=== PATIENT | male | born 2000 | race Caucasian/White ===

== ENCOUNTER → 2020-08-15 15:47 | Outpatient (CLI) | payer OTHER, SELFPAY ==
--- NOTE | ~2020-08-15 | XR_ITS ---
XR abdomen/kub 1V DATE: 08/15/2020 16:04 INDICATION: Lower urinary tract symptoms. Right-sided stone 1 month ago. TECHNIQUE: AP projection, 2 views COMPARISON: None FINDINGS: No urinary tract calcification is evident. The renal silhouettes appear unremarkable. The p soas shadows are intact. No visceromegaly is detected. There is no evidence of bowel obstruction. Included skeletal structures are unremarkable. IMPRESSION: No significant abnormality Reviewed, dictated and finalized at [facility]. Reviewed, dictated and finalized at [facility]. IMPRESSION: No significant abnormality
== END ==
DX: R39.9 Unspecified symptoms and signs involving the genitourinary system (principal)
CPT/HCPCS: 74018